=== PATIENT | female | born 1985 | race Caucasian/White ===

== ENCOUNTER → 2017-11-22 | Outpatient (CLI) | payer OTHER ==
[~2017-11-22] MED LIST: BIRTH CONTROL; HYDR-3083 PO
--- NOTE | 2017-11-22 10:19 | RADIOLOGY IMAGING REPORT ---
FACILITY: [facility] PATIENT NAME: Geno Aburto : 1985 MR: [id number] V: [id number] EXAM DATE: ORDERING PHYSICIAN: TIAN MIRAMONTES TECHNOLOGIST: Location: [facility] [place] Patient: Geno Aburto : 1985 Visit/Account:[id number] Date of Sevice: 11/22/2017 EXAMINATION: MRA of the [place] HISTORY: Dizziness. Blurry vision. COMPARISON: Noncontrast head CT dated 04/08/2013. TECHNIQUE: [id number]-[id number]-flight angiography was performed in the axial plane on the [place] without IV crow olinium. The exam was tailored for assessment of the [place] only. Only limited sequences were obtai eliza of the rest of the brain. FINDINGS: Petrous carotids: Negative. Carotid siphons / bifurcations: Negative. Anterior / Posterior communicating arteries: Negative. Anterior cerebral arteries: Negative. Middle cerebral arteries: Negative. Intra-cranial vertebral arteries: Negative. Basilar artery: Negative. PICA / AICA / SCA / CAN TECHNICIAN: Negative. Non-angiographic Findings: Rightward nasal septal deviation. IMPRESSION: Normal MRA of the [place]. Report Dictated By: Papo Rodriguez MD at 11/22/2017 10:11 AM Report E-Signed By: Papo Rodriguez MD at 11/22/2017 10:14 AM WSN:[id number]
== END ==
LOC: MRI 00:51
PROVIDERS: ATTEND Family Medicine
DX: R42 Dizziness and giddiness (principal)
CPT/HCPCS: 70544

== ENCOUNTER → 2018-02-06 | Outpatient (CLI) | payer OTHER ==
--- NOTE | 2018-02-07 10:30 | RADIOLOGY IMAGING REPORT ---
FACILITY: [facility] [place] PATIENT NAME: Geno Aburto : 1985 MR: [id number] V: [id number] EXAM DATE: ORDERING PHYSICIAN: TIAN MIRAMONTES TECHNOLOGIST: Location: [facility] Patient: Geno Aburto : 1985 Visit/Account:[id number] Date of Sevice: 02/06/2018 SOFT TISSUE HEAD NECK HISTORY: Ultrasound of the right anterior mid neck area where symptoms of nausea and distorted visio n artery.. COMPARISON: None. FINDINGS: Ultrasound of the bilateral anterior neck was performed with a high frequency linear transducer. Right neck Benign appearing 8 mm transverse diameter lymph node at the angle of the mandible. Benign appearing 12 mm transverse diameter submandibular lymph node. Right submandibular and thyroid lobes are normal. No mass or cyst is seen. Left neck: Benign 5 mm lymph node at the angle of the mandible. Benign appearing 7 mm submandibular lymph node node. Benign 12 mm infrahyoid level 6 lymph node is noted. Left submandibular and thyroid gland are normal. No mass or cyst is seen. IMPRESSION: Normal Report Dictated By: Violeta Rivera MD at 02/07/2018 10:20 AM Report E-Signed By: Violeta Rivera MD at 02/07/2018 10:25 AM WSN:[id number]
== END ==
LOC: US 02:12
PROVIDERS: ATTEND Family Medicine
DX: R42 Dizziness and giddiness (principal)
CPT/HCPCS: 76536